=== PATIENT | female | born 1945 | race Caucasian/White ===

== ENCOUNTER 2017-12-21 10:13 | Outpatient (CLI) | payer MEDICARE | END 2017-12-21 10:14 | disposition home or self-care (01) | LOC: DI.N 10:13 | PROVIDERS: ATTEND Internal Medicine | DX: Z53.9 Procedure and treatment not carried out, unspecified reason (principal) ==

== ENCOUNTER 2018-01-11 10:21 | Outpatient (CLI) | payer MEDICARE ==
--- NOTE | 2018-01-13 09:33 | Ultrasound Report ---
BILATERAL MAMMOGRAPHY, AND RIGHT BREAST ULTRASOUND: 01/11/2018 HISTORY: Right upper outer quadrant pain. COMPARISON: 09/29/2016, 06/03/2015, 05/27/2014, and 06/05/2013. TECHNIQUE: Bilateral digital CC and MLO projections with an additional right true lateral. FINDINGS: The breast tissue is heterogeneously dense. There is no dominant mass, architectural distortion, skin thickening, suspicious microcalcifications, or interval change. No abnormality is identified in the right upper outer quadrant area of pain. RIGHT BREAST ULTRASOUND TECHNIQUE: Real-time scanning of the right upper outer quadrant with me present and saved static images reviewed. FINDINGS: In the area of pain there is no evidence of a cystic or solid mass, architectural distortion, or fluid collection. IMPRESSION: NEGATIVE. BI-RADS CATEGORY 1 - NEGATIVE. SUGGEST RETURN TO ROUTINE SCREENING IN 12 MONTHS. SUGGEST CLINICAL FOLLOWUP OF RIGHT BREAST PAIN. STANDARD QUALIFYING STATEMENTS 1. This examination was reviewed with the aid of Computer-Aided Detection (CAD) . 2. A negative or benign imaging report should not delay biopsy if clinically suspicious findings are present. Consider surgical consultation if warranted. More than 5 % of cancers are not identified by imaging. 3. Dense breasts may obscure an underlying neoplasm. TD: 01/11/2018 12:14 MARYLU
== END 2018-01-11 10:22 | disposition home or self-care (01) ==
LOC: DI 10:21
PROVIDERS: ATTEND Internal Medicine
DX: N64.4 Mastodynia (principal)
CPT/HCPCS: 76642; 77066

== ENCOUNTER 2018-02-28 09:15 | Day surgery (SDC) | payer MEDICARE ==
[2018-02-28] MEDS ORDERED: LACTATED RINGERS 1,000 ML IV ONE (09:45)
[2018-02-28] MEDS ORDERED: fentaNYL 250 MCG/5 ML VIAL IVP ONE (10:33)
[2018-02-28] MEDS ORDERED: MIDAZOLAM 2 MG/2 ML VIAL IVP ONE (10:33)
[2018-02-28 11:40] VITALS: BP 107/49
[2018-02-28] MEDS ORDERED: ONDANSETRON 4 MG/2 ML VIAL ONE (11:44)
== END 2018-02-28 09:16 | disposition home or self-care (01) ==
LOC: SDS 09:15
PROVIDERS: ATTEND Surgery
PROC: 0DBL8ZX Excision of Transverse Colon, Via Natural or Artificial Opening Endoscopic, Diagnostic (ICD-10-PCS; 2018-02-28)
PROC: 0DBK8ZX Excision of Ascending Colon, Via Natural or Artificial Opening Endoscopic, Diagnostic (ICD-10-PCS; principal; 2018-02-28 10:30)
DX: Z12.11 Encounter for screening for malignant neoplasm of colon (principal); K57.30 Diverticulosis of large intestine without perforation or abscess without bleeding; D12.2 Benign neoplasm of ascending colon; D12.3 Benign neoplasm of transverse colon; K64.8 Other hemorrhoids
CPT/HCPCS: 45380; J3010; J7120

== ENCOUNTER 2019-01-24 09:31 | Outpatient (CLI) | payer MEDICARE ==
--- NOTE | 2019-01-24 11:03 | Mammography Report ---
Reason: SCREENING MAMMO Procedure Date: 01/24/2019 Accession Number: [id number] / [id number] Procedure: BAL - Screening Mammo w/Manny CPT Code: FULL RESULT: EXAM: Screening Mammo w/Manny DATE: 01/24/2019 9:56 AM CLINICAL HISTORY: Screening examination. TECHNIQUE: (B) - Bilateral CC and MLO views were obtained. COMPARISON. : 01/11/2018, 09/29/2016 PARENCHYMAL PATTERN: (A) - The breasts demonstrate scattered fibroglandular densities bilaterally. FINDINGS: There are no suspicious masses, calcifications, or areas of distortion. IMPRESSION: Negative examination. BI-RADS category 1. RECOMMENDATION: (ANNUAL) - Recommend routine annual screening mammography. BI-RADS CATEGORY: (1) - Negative. STANDARD QUALIFYING STATEMENTS: 1. This examination was not reviewed with the aid of Computer-Aided Detection (CAD). 2. A negative or benign imaging report should not preclude biopsy if clinically suspicious findings are present. 3. Dense breasts may obscure an underlying neoplasm. 4. This examination was reviewed with the aid of 3D breast imaging (tomosynthesis).
== END 2019-01-24 09:32 | disposition home or self-care (01) ==
LOC: DI 09:31
DX: Z12.31 Encounter for screening mammogram for malignant neoplasm of breast (principal)
CPT/HCPCS: 77063; 77067

== ENCOUNTER 2020-09-17 11:03 | Outpatient (CLI) | payer MEDICARE ==
--- NOTE | 2020-09-17 12:25 | XRAY Report ---
PROCEDURE: Shoulder 3 View LT INDICATIONS: L SHLDR PAIN/ADHESIVE CAPSULITIS TECHNIQUE: 3 views of the shoulder were acquired. COMPARISON: None. FINDINGS: Bones: No fractures or dislocations. No suspicious bony lesions. Visualized ribs appear intact. M ild periarticular osteophyte formation at the acromioclavicular and glenohumeral joints. Soft tissues: No suspicious soft tissue calcifications. IMPRESSION: Osteoarthritis. No acute fracture. No osseous lesion. If symptoms and/or clinical suspic ion for pathology continue, further assessment with repeat plain films, or advanced imaging (e.g., CT , MRI, or bone scan) is recommended for further assessment. Reviewed by: Sophia Yañez MD on 09/17/2020 12:24 PM PST Approved by: Sophia Yañez MD on 09/17/2020 12:24 PM PST Station ID: [id number]
== END 2020-09-17 11:04 | disposition home or self-care (01) ==
LOC: DI 11:03
PROVIDERS: ATTEND Family Medicine
DX: M75.02 Adhesive capsulitis of left shoulder (principal); M19.012 Primary osteoarthritis, left shoulder

== ENCOUNTER 2020-10-09 09:20 | Outpatient (CLI) | payer MEDICARE ==
--- NOTE | 2020-10-13 12:43 | Mammography Report ---
BILATERAL DIGITAL SCREENING MAMMOGRAM 3D/2D: 10/09/2020 CLINICAL: Routine screening. Comparison is made to exams dated: 01/24/2019 mammogram, 01/11/2018 ultrasound, and 01/11/2018 mammogram - [facility]. The tissue of both breasts is heterogeneously dense. This may lower the sensitivity of mammography. No significant masses, calcifications, or other findings are seen in either breast. There has been no significant interval change. IMPRESSION: NEGATIVE There is no mammographic evidence of malignancy. A 1 year screening mammogram is recommended. This exam was interpreted at Station ID: [id number]. NOTE: For mammograms, a report in lay terms will be sent to the patient. Approximately 15% of breast malignancies will not be visualized mammographically. In the management of a palpable breast mass, a negative mammogram must not discourage biopsy of a clinically suspicious lesion. Electronically Signed By: Luke martinez/locorad:10/09/2020 13:22:23 ACR BI-RADS Category 1: Negative 3341F PARENCHYMAL PATTERN: (D) - The breast(s) demonstrate(s) heterogeneously dense fibroglandular [place]. BI-RADS CATEGORY: (1) - 1 RECOMMENDATION: (ANNUAL) - Recommend routine annual screening mammography. [id number] 1 year screening LATERALITY: (B)
== END 2020-10-09 09:21 | disposition home or self-care (01) ==
LOC: DI.N 09:20
DX: Z12.31 Encounter for screening mammogram for malignant neoplasm of breast (principal)

== ENCOUNTER 2020-10-30 09:25 | Outpatient (CLI) | payer MEDICARE ==
--- NOTE | 2020-10-30 10:39 | MRI Report ---
PROCEDURE: Shoulder LT W/O INDICATIONS: LT SHLDR PAIN W/FROZEN SHLDR TECHNIQUE: Noncontrast oblique coronal T2 fast spin echo with fat saturation, oblique sagittal T1 spin echo and T2 fast spin echo with fat saturation, axial T1 spin echo and T2 fast spin echo with fat saturation t hrough the shoulder. COMPARISON: Shoulder radiograph dated 09/17/2020. FINDINGS: Image quality: Excellent. Rotator cuff: Tendinosis and low-grade articular and bursal surface partial-thickness tear involving distal supraspinatus at its insertion on humeral head is seen extending to musculotendinous junction. Distal infraspinatus tendinosis is also noted. Distal subscapularis tendon is intact. Mild supraspin atus muscle atrophy is noted on sagittal images. Bones and bursae: Moderate acromioclavicular joint osteoarthritic changes are seen with marrow edema seen involving humeral head without definite discrete fracture line or cortical disruption. The acrom ion demonstrates conventional anatomy, without an os acromiale. No pathologic subacromial/subdeltoid bursal fluid is present. Capsule and soft tissues: In the absence of intra-articular contrast, the labrum and glenohumeral li gaments appear intact. The long head of the biceps tendon demonstrates normal location and morpholog y. The rotator interval appears normal, without fibrosis. The coracohumeral ligament is normal in t hickness. IMPRESSION: 1. Tendinosis and low-grade articular and bursal surface partial-thickness tear involving distal supr aspinatus extending to musculotendinous junction. Distal infraspinatus tendinosis. Mild supraspinatus muscle atrophy. 2. Bony contusion involving humeral head, subtle incomplete fracture cannot be entirely excluded. No other area of abnormal marrow signal. Moderate acromioclavicular joint and glenohumeral joint osteoar thritis. 3. No definite focal labral tear. Reviewed by: Josue Parker MD on 10/30/2020 10:38 AM PST Approved by: Josue Parker MD on 10/30/2020 10:38 AM PST Station ID: [id number]
== END 2020-10-30 09:26 | disposition home or self-care (01) ==
LOC: DI 09:25
PROVIDERS: ATTEND Family Medicine
DX: M75.02 Adhesive capsulitis of left shoulder (principal); M19.012 Primary osteoarthritis, left shoulder; M75.102 Unspecified rotator cuff tear or rupture of left shoulder, not specified as traumatic

== ENCOUNTER 2021-04-01 09:16 | Outpatient (CLI) | payer MEDICARE ==
--- NOTE | 2021-04-01 13:06 | XRAY Report ---
PROCEDURE: Lumbar Spine Complete INDICATIONS: CHRONIC LOW BACK PX, SCIATICA TECHNIQUE: 5 views of the lumbar spine were acquired. COMPARISON: None. FINDINGS: Bones: 5 [id number] vertebrae are present. There is normal bony alignment. No vertebral body compression fractures. No suspicious bony lesions. Mild degenerative disc height reduction is seen along the lumbosacral alignment best visualized at L4-5 and L5-S1. Facet osteoarthritis is present mo derate in severity at L5-S1 and spinal and foraminal stenosis may be associated. Soft tissues: Overlying bowel gas pattern is normal. No suspicious soft tissue calcifications. IMPRESSION: Mild degenerative disc disease along the lumbosacral spine, and there is potential for m ild to moderate spinal and foraminal stenosis at L5-S1. No trauma found. Reviewed by: Olman Appiah MD on 04/01/2021 1:04 PM PDT Approved by: Olman Appiah MD on 04/01/2021 1:04 PM PDT Station ID: [id number]
== END 2021-04-01 09:17 | disposition home or self-care (01) ==
LOC: DI.N 09:16
PROVIDERS: ATTEND Family Medicine
DX: M51.17 Intervertebral disc disorders with radiculopathy, lumbosacral region (principal)

== ENCOUNTER 2021-04-22 12:49 | Outpatient (CLI) | payer MEDICARE ==
--- NOTE | 2021-04-22 13:36 | XRAY Report ---
PROCEDURE: Ankle 3 View LT INDICATIONS: SPRAIN OF CALCANEOFIBULAR LIGAMENT OF L ANKLE TECHNIQUE: 3 views of the ankle were acquired. COMPARISON: None FINDINGS: Bones: No fractures or dislocations. Ankle mortise is normally aligned. Tibiotalar joint osteophyti c changes are seen. Well-defined plantar calcaneal enthesophyte is seen. No suspicious bony lesions. Soft tissues: No tibiotalar joint effusion. Achilles tendon appears normal. IMPRESSION: No ankle fracture or dislocation. Tibiotalar joint osseous arthritis. Well-defined plant ar calcaneal enthesophyte. Intact ankle mortise. Reviewed by: Josue Parker MD on 04/22/2021 1:34 PM PDT Approved by: Josue Parker MD on 04/22/2021 1:34 PM PDT Station ID: [id number]
== END 2021-04-22 23:59 | disposition home or self-care (01) ==
LOC: DI.N 12:49
PROVIDERS: ATTEND Emergency Medicine
DX: S93.412A Sprain of calcaneofibular ligament of left ankle, initial encounter (principal); M25.772 Osteophyte, left ankle

== ENCOUNTER 2021-05-13 10:30 | Outpatient (CLI) | payer MEDICARE ==
--- NOTE | 2021-05-13 13:12 | XRAY Report ---
PROCEDURE: Knee 3 View RT INDICATIONS: R KNEE PX TECHNIQUE: 3 views of the right knee(s) were acquired. COMPARISON: None. FINDINGS: Bones: No fractures or dislocations. No suspicious bony lesions. There is moderate medial femorotibial joint space narrowing, with associated degenerative change with subchondral sclerosis and osteophyte formation. On the sunrise view, there is moderate lateral henderson lofemoral joint space narrowing, with associated remodeling changes, including spurs along the margin s of the patella. Soft tissues: No joint effusion. No suspicious soft tissue calcifications. IMPRESSION: Age-appropriate right knee degenerative changes can be seen by plain film. If there is strong clinical concern for internal derangement of the knee, please consider a dedicated , scheduled knee MRI for further evaluation (assuming that there is no contraindication). Reviewed by: Familia Dawn MD on 05/13/2021 12:11 PM CARLIE Approved by: Familia Dawn MD on 05/13/2021 12:11 PM CARLIE Station ID: [id number]
== END 2021-05-13 10:31 | disposition home or self-care (01) ==
LOC: DI.N 10:30
PROVIDERS: ATTEND Family Medicine
DX: M25.561 Pain in right knee (principal)

== ENCOUNTER 2022-04-07 12:42 | Outpatient (CLI) | payer MEDICARE ==
[2022-04-07 13:00] LABS: BASOPHILS # (AUTO) 0.1 10^3/uL (0.0-0.1); BASOPHILS % (AUTO) 1.4 %; EOSINOPHILS % (AUTO) 0.8 %; HCT - HEMATOCRIT 43.1 % (37.0-47.0); HGB - HEMOGLOBIN 14.7 g/dL (12.0-16.0); LYMPHOCYTES # (AUTO) 1.5 10^3/uL (1.5-3.5); LYMPHOCYTES % (AUTO) 40.3 %; MEAN CORPUSCULAR HEMOGLOBIN 31.5 pg (27.0-31.0); MEAN CORPUSCULAR HGB CONC 34.1 g/dL (32.0-36.0); MEAN CORPUSCULAR VOLUME 92.5 fL (81.0-99.0); MEAN PLATELET VOLUME 11.1 fL (7.9-10.8); MONOCYTES # (AUTO) 0.3 10^3/uL (0.0-1.0); MONOCYTES % (AUTO) 8.8 %; NEUTROPHILS # (AUTO) 1.8 10^3/uL (1.5-6.6); NEUTROPHILS % (AUTO) 48.7 %; PLT - PLATELET COUNT 291 10^3/uL (130-450); RED BLOOD COUNT 4.66 10^6/uL (4.20-5.40); RED CELL DISTRIBUTION WIDTH 12.5 % (12.0-15.0); WHITE BLOOD COUNT 3.6 x10^3/uL (4.8-10.8)
[2022-04-07 13:35] LABS: ALBUMIN 4.8 g/dL (3.2-5.5); ALBUMIN/GLOBULIN RATIO 1.5 (1.0-2.2); ALKALINE PHOSPHATASE 57 IU/L (42-121); ALT ALANINE AMINOTRANSFERASE 17 IU/L (10-60); AST ASPARTATE AMINOTRANSFERASE 24 IU/L (10-42); BILIRUBIN,TOTAL 1.3 mg/dL (0.2-1.0); BUN - BLOOD UREA NITROGEN 17 mg/dL (6-20); CALCIUM 9.7 mg/dL (8.5-10.3); CARBON DIOXIDE - CO2 25 mmol/L (21-32); CHLORIDE 103 mmol/L (101-111); CHOL/HDL RATIO 3.8 (<4.4); CHOLESTEROL 218 mg/dL; CREATININE 0.8 mg/dL (0.4-1.0); GFR - MDRD 70 (>89); GLUCOSE 86 mg/dL (70-100); HDL CHOLESTEROL 58 mg/dL; LDL CHOLESTEROL,CALCULATED 148 mg/dL; LDL/HDL RATIO 2.6 (<4.4); POTASSIUM 3.8 mmol/L (3.5-5.0); SODIUM 140 mmol/L (135-145); TOTAL PROTEIN 8.1 g/dL (6.7-8.2); TRIGLYCERIDES 58 mg/dL; VLDL CHOLESTEROL 12 mg/dL
== END 2022-04-07 12:43 | disposition home or self-care (01) ==
LOC: LAB.R 12:42
PROVIDERS: ATTEND Internal Medicine
DX: Z00.00 Encounter for general adult medical examination without abnormal findings (principal); E78.5 Hyperlipidemia, unspecified; R03.0 Elevated blood-pressure reading, without diagnosis of hypertension; Z86.010 Personal history of colon polyps; Z13.6 Encounter for screening for cardiovascular disorders
CPT/HCPCS: 80053; 80061; 83721; 84443; 85025

== ENCOUNTER 2022-04-19 14:33 | Outpatient (CLI) | payer MEDICARE ==
--- NOTE | 2022-04-21 08:11 | Mammography Report ---
BILATERAL DIGITAL SCREENING MAMMOGRAM 3D/2D: 04/19/2022 CLINICAL: Routine screening. Comparison is made to exams dated: 10/09/2020 mammogram, 01/24/2019 mammogram, 01/11/2018 ultrasound, mammogram, 09/29/2016 mammogram - [facility], and 06/03/2015 mammogram - [facility]. The tissue of both breasts is heterogeneously dense. This may lower the sensitivity of mammography. No significant masses, calcifications, or other findings are seen in either breast. There has been no significant interval change. IMPRESSION: NEGATIVE There is no mammographic evidence of malignancy. A 1 year screening mammogram is recommended. Based on the Tyrer Cuzick model (a risk assessment model) the patients lifetime risk is 5.4% and her 10 year risk is 4.9%. According to the ACR, ACS, and NCCN guidelines, an annual breast MRI exam deisi g with mammogram is recommended if the patients lifetime risk is 20% or greater. This exam was interpreted at Station ID: [id number]. NOTE: For mammograms, a report in lay terms will be sent to the patient. Approximately 15% of breast malignancies will not be visualized mammographically. In the management of a palpable breast mass, a negative mammogram must not discourage biopsy of a clinically suspicious lesion. Electronically Signed By: Kuldip Christian acr/penrad:04/20/2022 08:49:59 ACR BI-RADS Category 1: Negative 3341F PARENCHYMAL PATTERN: (D) - The breast(s) demonstrate(s) heterogeneously dense fibroglandular [place]. BI-RADS CATEGORY: (1) - 1 RECOMMENDATION: (ANNUAL) - Recommend routine annual screening mammography. [id number] 1 year screening LATERALITY: (B)
== END 2022-04-19 14:34 | disposition home or self-care (01) ==
LOC: DI.N 14:33
PROVIDERS: ATTEND Internal Medicine
DX: Z12.31 Encounter for screening mammogram for malignant neoplasm of breast (principal)

== ENCOUNTER 2023-03-25 08:26 | Outpatient (CLI) | payer MEDICARE ==
--- NOTE | 2023-03-25 12:26 | XRAY Report ---
PROCEDURE: Lumbar Spine 2 View INDICATIONS: LUMBAGO TECHNIQUE: 3 views of the lumbar spine were acquired. COMPARISON: None. FINDINGS: Bones: 5 [id number] vertebrae are present. There is normal bony alignment. Degenerative endpl ate changes and loss of disc height are noted throughout lumbar spine more notably at L4-5 and L5-S1 levels. No vertebral body compression fractures. No suspicious bony lesions. Soft tissues: Overlying bowel gas pattern is normal. No suspicious soft tissue calcifications. IMPRESSION: No acute compression fracture or spondylolisthesis. Degenerative disc disease throughout lumbar spine most notably at L4-5 and L5-S1 levels. Reviewed by: Josue Parker MD on 03/25/2023 12:24 PM PDT Approved by: Josue Parker MD on 03/25/2023 12:24 PM PDT Station ID: [id number]
== END 2023-03-25 08:27 | disposition home or self-care (01) ==
LOC: DI.N 08:26
PROVIDERS: ATTEND Family Medicine
DX: M51.16 Intervertebral disc disorders with radiculopathy, lumbar region (principal); M51.17 Intervertebral disc disorders with radiculopathy, lumbosacral region

== ENCOUNTER 2023-04-19 09:27 | Outpatient (CLI) | payer MEDICARE ==
--- NOTE | 2023-04-20 09:01 | Mammography Report ---
BILATERAL DIGITAL SCREENING MAMMOGRAM 3D/2D: 04/19/2023 CLINICAL: Routine screening. Comparison is made to exams dated: 04/19/2022 mammogram, 10/09/2020 mammogram, 01/24/2019 mammogram, ultrasound, 01/11/2018 mammogram, and 09/29/2016 mammogram - [facility]. Both breasts are heterogeneously dense, which may obscure small masses (category c / 51-75% glandular tissue). No significant masses, calcifications, or other findings are seen in either breast. There has been no significant interval change. IMPRESSION: NEGATIVE There is no mammographic evidence of malignancy. A 1 year screening mammogram is recommended. Based on the Tyrer Cuzick model (a risk assessment model) the patients lifetime risk is 5.0% and her 10 year risk is 5.0%. According to the ACR, ACS, and NCCN guidelines, an annual breast MRI exam deisi g with mammogram is recommended if the patients lifetime risk is 20% or greater. This exam was interpreted at Station ID: [id number]. NOTE: For mammograms, a report in lay terms will be sent to the patient. Approximately 15% of breast malignancies will not be visualized mammographically. In the management of a palpable breast mass, a negative mammogram must not discourage biopsy of a clinically suspicious lesion. Electronically Signed By: Artur wing/didier:04/19/2023 18:41:17 letter sent: No_Letter ACR BI-RADS Category 1: Negative 3341F PARENCHYMAL PATTERN: (D) - The breast(s) demonstrate(s) heterogeneously dense fibroglandular [place]. BI-RADS CATEGORY: (1) - 1 Mammogram [id number] 1 year screening LATERALITY: (B)
== END 2023-04-19 09:28 | disposition home or self-care (01) ==
LOC: DI.N 09:27
PROVIDERS: ATTEND Internal Medicine
DX: Z12.31 Encounter for screening mammogram for malignant neoplasm of breast (principal)

== ENCOUNTER 2023-06-20 14:01 | Outpatient (CLI) | payer MEDICARE ==
[2023-06-20] MEDS ORDERED: IOVERSOL 320 100 ML VIAL IVP ONE (14:42)
--- NOTE | 2023-06-20 20:07 | CT Report ---
PROCEDURE: CT angiogram brain with contrast, CT brain without contrast INDICATIONS: Right-sided numbness x2 weeks CONTRAST: 80mL Opti 320 TECHNIQUE: After the administration of intravenous contrast, 1 mm thick sections acquired through th e [facility] [place]. Postcontrast 4.5 mm thick sections then re-acquired from the foramen magnum to t he vertex. Ptaiymj-gcfudjaju-tczethhtws (MIP) and/or volume rendering reformats were acquired of the central intracranial vasculature. For radiation dose reduction, the following was used: automated exposure control, adjustment of mA and/or kV according to patient size. COMPARISON: None. FINDINGS: Image quality: Diagnostic. Anterior circulation: Intracranial internal carotid arteries are normal in size and flow. The flow within the paired anterior cerebral arteries is normal and symmetric. The flow within the middle cer ebral arteries is normal and symmetric. The anterior communicating artery is seen. No aneurysms are seen. Posterior circulation: Visualized portions of the vertebral arteries demonstrate normal caliber, and join to form a normal appearing basilar artery. Flow within the posterior cerebral arteries is norm al and symmetric. No aneurysms are seen. CSF spaces: Ventricles are normal in size and shape. Basal cisterns are patent. No extra-axial flu id collections. Brain: No midline shift. No intracranial bleeds or masses. Oh-white matter interface appears int act. Skull and face: Calvarium and facial bones appear intact, without suspicious lesions. Sinuses: Visualized sinuses and mastoids are clear. IMPRESSION: Normal CT angiogram the brain. No large vessel occlusion, aneurysm or vascular malformation. Normal C T of the brain. No intracranial hemorrhage or mass effect Reviewed by: Ramon Conner MD on 06/20/2023 7:06 PM CARLIE Approved by: Ramon Conner MD on 06/20/2023 7:06 PM AKDT Station ID: [id number]
== END 2023-06-20 14:02 | disposition home or self-care (01) ==
LOC: DI 14:01
PROVIDERS: ATTEND Family Medicine
DX: G81.91 Hemiplegia, unspecified affecting right dominant side (principal)
CPT/HCPCS: 70496; Q9967

== ENCOUNTER 2024-05-08 10:25 | Outpatient (CLI) | payer MEDICARE ==
--- NOTE | 2024-05-09 10:48 | Mammography Report ---
BILATERAL DIGITAL SCREENING MAMMOGRAM 3D/2D: 05/08/2024 CLINICAL: Routine screening. Comparison is made to exams dated: 04/19/2023 mammogram, 04/19/2022 mammogram, 10/09/2020 mammogram, mammogram, 01/11/2018 ultrasound, and 01/11/2018 mammogram - [facility]. Both breasts are heterogeneously dense, which may obscure small masses (category c / 51-75% glandular tissue). No significant masses, calcifications, or other findings are seen in either breast. There has been no significant interval change. IMPRESSION: NEGATIVE There is no mammographic evidence of malignancy. A 1 year screening mammogram is recommended. Based on the Tyrer Cuzick model (a risk assessment model) the patient's lifetime risk is 4.1% and her 10 year risk is 0.0%. According to the ACR, ACS, and NCCN guidelines, an annual breast MRI exam deisi g with mammogram is recommended if the patient's lifetime risk is 20% or greater. This exam was interpreted at Station ID: [id number]. NOTE: For mammograms, a report in lay terms will be sent to the patient. Approximately 15% of breast malignancies will not be visualized mammographically. In the management of a palpable breast mass, a negative mammogram must not discourage biopsy of a clinically suspicious lesion. Electronically Signed By: Chani mack/didier:05/08/2024 12:31:14 letter sent: No_Letter ACR BI-RADS Category 1: Negative 3341F PARENCHYMAL PATTERN: (D) - The breast(s) demonstrate(s) heterogeneously dense fibroglandular [place]. BI-RADS CATEGORY: (1) - 1 RECOMMENDATION: (ANNUAL) - Recommend routine annual screening mammography. [id number] 1 year screening LATERALITY: (B)
== END 2024-05-08 10:26 | disposition home or self-care (01) ==
LOC: DI.N 10:25
DX: Z12.31 Encounter for screening mammogram for malignant neoplasm of breast (principal); R92.333 Mammographic heterogeneous density, bilateral breasts